=== PATIENT | female | born 1960 | race American Indian/Alaskan Native ===

== ENCOUNTER 2020-10-15 13:43 | Outpatient (CLI) | payer OTHER | END 2020-10-15 13:44 | disposition home or self-care (01) | LOC: PF 13:43 | PROVIDERS: ATTEND Internal Medicine | DX: J45.909 Unspecified asthma, uncomplicated (principal); N20.0 Calculus of kidney; G62.9 Polyneuropathy, unspecified | CPT/HCPCS: 94010; 94729 ==